=== PATIENT | male | born 1965 | race American Indian/Alaskan Native ===

== ENCOUNTER 2018-07-24 09:24 | Outpatient (CLI) | payer OTHER ==
[2018-07-24 10:24] LABS: Blood Urea Nitrogen 12 mg/dL (9-20)
--- NOTE | 2018-07-24 12:58 | Cat Scan Report ---
CT ABDOMEN PELVIS WITH CONTRAST: HISTORY: Colon cancer. COMPARISON: None at this facility. TECHNIQUE: Helical CT in 1.25mm intervals following IV contrast. Sagittal and coronal reconstructions. FINDINGS: Lung bases: Normal. Liver: Normal. Biliary system: The. Pancreas: Normal. Spleen: Normal. Kidneys/ureters/bladder: Within normal limits. 3.3 x 1.8 cm right renal cyst is noted. Adrenal glands: Normal. Aorta: Normal. Intestines: There is a focal area of asymmetric bowel wall thickening in the distal transverse colon with adjacent fat stranding or desmoplastic reaction in the mesentery. This area measures approximately 3.0 x 2.6 cm in axial plane. I believe I see a fistulous tract within the soft tissue density measuring 4-5 cm in length which connects two segments of the transverse colon. I am not entirely convinced this represents a colon mass. This may represent a colon to colon fistula as well. This is best demonstrated on images 91-101, series 2. This is also confirmed on the sagittal and coronal images. The remainder of the colon, small bowel loops and stomach are within normal limits. Appendix: Normal. Pelvic viscera: Normal. Ascites: None. Adenopathy: None. Musculoskeletal: Normal. IMPRESSION: There is a focal abnormality in the distal transverse colon as outlined above. Although this could represent a colon neoplasm, I would also consider a colon to colon fistula. Please see above. There is no evidence for metastatic disease.
== END 2018-07-24 09:25 | disposition home or self-care (01) ==
LOC: CT 09:24
PROVIDERS: ATTEND Internal Medicine Gastroenterology
DX: C18.4 Malignant neoplasm of transverse colon (principal)
CPT/HCPCS: 36415; 74177; 82565; 84520; Q9967

== ENCOUNTER 2018-08-15 06:06 | Inpatient (IN) | payer OTHER ==
[2018-08-11 11:52] LABS: Eosinophils % (Auto) 0.2 % (0.0-4.3); Hematocrit 40.9 % (35.5-45.6); Hemoglobin 13.8 gm/dl (11.8-15.2); Lymphocytes # (Auto) 1.8 K/mm3 (1.2-5.4); Lymphocytes % (Auto) 48.7 % (13.4-35.0); Mean Corpuscular HGB Conc 34 % (32-34); Mean Corpuscular Volume 87 fl (84-94); Monocytes # (Auto) 0.4 K/mm3 (0.0-0.8); Monocytes % (Auto) 12.2 % (0.0-7.3); Platelet Count 251 K/mm3 (140-440); Red Cell Distribution Width 13.2 % (13.2-15.2)
--- NOTE | 2018-08-11 11:55 | Anesthesia Consultation ---
Addendum entered and electronically signed by BOBO HEREDIA MD 08/15/18 08:29: Upon arrival to pre-op, patient reported that he did not complete the entire bowel prep and that most recent bowel movement at 0400 today still contained some stool. Case cancelled per surgeon. Original Note: Anesthesia Consult and Med Hx Date of service: 08/11/18 - Airway Anesthetic Teeth Evaluation: Good (some missing) ROM Head & Neck: Adequate Mental/Hyoid Distance: Adequate Mallampati Class: Class I Intubation Access Assessment: Good - Pulmonary Exam CTA: Yes - Cardiac Exam Cardiac Exam: RRR - Pre-Operative Health Status ASA Pre-Surgery Classification: ASA1 Proposed Anesthetic Plan: General Nerve Block: consider TAP - Pulmonary Hx Smoking: No - Cardiovascular System Hx Hypertension: No Hx Cardia Arrhythmia: No - Central Nervous System Hx Neuromuscular Disorder: No Hx Psychiatric Problems: No - Gastrointestinal Hx Gastroesophageal Reflux Disease: No - Endocrine Hx Renal Disease: No - Other Systems Hx Alcohol Use: No Hx Substance Use: No Hx Cancer: Yes Hx Obesity: No
[~2018-08-15 06:06] MED LIST: ANCEF/STERILE WATER 2 GM/20 ML 2 GM/20 ML SYRINGE IV NR; FLAGYL 500 MG/100 ML 500 MG/100 ML BAG IV NR; LACTATED RINGERS 1,000 ML IV SCH; NACL 0.9% 1000 ML 1,000 ML IV SCH; NEURONTIN PO SCH; ROBINUL IV NR; SUBLIMAZE IV PRN; VERSED IV NR
[2018-08-15] MEDS ORDERED: NACL BACTERIOSTATIC INFILTRATI ONE (06:48)
[2018-08-15] MEDS ORDERED: DECADRON ONE ×2 (07:01→07:14)
[2018-08-15] MEDS ORDERED: MARCAINE 0.25% INFILTRATI ONE (07:01)
[2018-08-15] MEDS ORDERED: XYLOCAINE MPF 2% ONE (07:13)
[2018-08-15] MEDS ORDERED: SUBLIMAZE ONE (07:13)
[2018-08-15] MEDS ORDERED: DIPRIVAN 10 MG/ML IV ONE (07:13)
[2018-08-15] MEDS ORDERED: ZEMURON IV ONE (07:14)
[2018-08-15] MEDS ORDERED: ZOFRAN ONE (07:14)
--- NOTE | 2018-08-15 07:49 | Event Note ---
Date: 08/15/18 Case had to be cancelled. Pt was not able to take the bowel prep as recommended. He was still having liquid stool this AM at 4am. We discussed the increased risk of infection with bowel surgery and an inadequate prep. Pt understood. No time tomorrow on the OR schedule. Will reschedule for another day. Spoke with son as well. He understood.
[2018-08-15 07:57] VITALS: BP 126/88
== END 2018-08-15 07:32 | disposition home or self-care (01) | DRG 376 ==
LOC: 3A 06:06
PROVIDERS: ADMIT Surgery; ATTEND Surgery
DX: C18.4 Malignant neoplasm of transverse colon (principal); Z53.8 Procedure and treatment not carried out for other reasons
CPT/HCPCS: 36415; 85025; G0378; J0690; J1100; J2250; J2405; J2704; J3010; J7030; J7120

== ENCOUNTER 2018-08-29 07:16 | Inpatient (IN) | payer OTHER ==
[~2018-08-29 07:16] MED LIST changes: -LACTATED RINGERS 1,000 ML IV SCH; -NACL 0.9% 1000 ML 1,000 ML IV SCH; -ROBINUL IV NR; -SUBLIMAZE IV PRN; -VERSED IV NR
[2018-08-29] MEDS ORDERED: XYLOCAINE MPF 2% ONE (08:36)
[2018-08-29] MEDS ORDERED: SUBLIMAZE ONE ×2 (08:36→09:22)
[2018-08-29] MEDS ORDERED: DIPRIVAN 10 MG/ML IV ONE (08:36)
[2018-08-29] MEDS ORDERED: NACL 0.9% 1000 ML 1,000 ML ONE (08:43)
[2018-08-29] MEDS ORDERED: LACTATED RINGERS 1,000 ML IV SCH (09:00)
[2018-08-29] MEDS ORDERED: TYLENOL PO NR (09:00)
[2018-08-29] MEDS ORDERED: NEURONTIN PO NR ×2 (09:00)
[2018-08-29] MEDS: NACL 0.9% 1000 ML 1,000 ML IV SCH ×2 (09:05→23:29)
[2018-08-29] MEDS ORDERED: VERSED ONE (09:21)
[2018-08-29] MEDS ORDERED: MARCAINE 0.25% INFILTRATI ONE (09:21)
[2018-08-29] MEDS ORDERED: XYLOCAINE 1% 20 mL ONE (09:21)
[2018-08-29] MEDS ORDERED: XYLOCAINE 1%/ EPI 1:100,000 INFILTRATI ONE (09:34)
[2018-08-29] MEDS ORDERED: MARCAINE 0.5% INFILTRATI ONE (09:34)
[2018-08-29] MEDS ORDERED: TYLENOL #3 PO STA (09:40)
[2018-08-29] MEDS ORDERED: TYLENOL ONE (10:07)
[2018-08-29] MEDS ORDERED: NEURONTIN ONE (10:07)
--- NOTE | 2018-08-29 13:24 | Post Operative Note ---
Date of procedure: 08/29/18 (dictation: [id number]) Pre-op diagnosis: colon cancer Post-op diagnosis: same Findings: large, firm mass in sigmoid colon. No other signs of cancer Procedure: Lap sigmoid colectomy with primary anastomosis IVF 1600cc UOP 250cc Anesthesia: TAMMY Surgeon: WILFRID THOMAS Financial Aid Manager: LIBORIO LOWERY Estimated blood loss: 50-100ml Pathology: list (sigmoid colon) Specimen disposition: to lab Condition: stable Disposition: PACU
--- NOTE | 2018-08-29 13:45 | XRay Report ---
ABDOMEN, 2 views: History: Instrument count. Recent surgical changes are noted. The bowel gas pattern is within normal limits. No radiopaque foreign body is identified in the abdomen or pelvis. IMPRESSION: No foreign body is identified.
--- NOTE | 2018-08-29 15:21 | Anesthesia Day of Surgery ---
Anesthesia Day of Surgery - Day of Surgery Patient Examined: Yes Patient H&P Reviewed: Yes Patient is NPO: Yes Philip's Test: N/A (All questions/concerns addressed.)
--- NOTE | 2018-08-29 15:27 | Anesthesia Consultation ---
Anesthesia Consult and Med Hx Date of service: 08/29/18 - Airway Anesthetic Teeth Evaluation: Good, Chipped ROM Head & Neck: Adequate Mental/Hyoid Distance: Adequate Mallampati Class: Class III Intubation Access Assessment: Probably Good - Pulmonary Exam CTA: Yes - Cardiac Exam Cardiac Exam: RRR - Pre-Operative Health Status ASA Pre-Surgery Classification: ASA3 Proposed Anesthetic Plan: General - Pulmonary Hx Smoking: No - Cardiovascular System Hx Hypertension: No Hx Cardia Arrhythmia: No - Central Nervous System Hx Neuromuscular Disorder: No Hx Psychiatric Problems: No - Gastrointestinal Hx Gastroesophageal Reflux Disease: No - Endocrine Hx Renal Disease: No - Other Systems Hx Alcohol Use: No Hx Substance Use: No Hx Cancer: Yes Hx Obesity: No - Additional Comments Anesthesia Medical History Comments: ASA III 53 y.o.m. with colon cancer and no major comorbidities scheduled for colectomy under [facility]
[2018-08-29] MEDS ORDERED: TYLENOL PO PRN (16:22)
[2018-08-29] MEDS ORDERED: DILAUDID IV PRN (16:22)
[2018-08-29] MEDS ORDERED: ZOFRAN IV PRN (16:22)
--- NOTE | 2018-08-29 16:59 | Event Note ---
Date: 08/29/18 Routine post-op check Pt resting comfortably in bed. No complaints. Had minimal pain. Easy breathing. Looks comfortable. Pt has no needs at this time. CPM.
--- NOTE | 2018-08-29 17:37 | Operative Report ---
PREOPERATIVE DIAGNOSIS: Sigmoid colon cancer. POSTOPERATIVE DIAGNOSIS: Sigmoid colon cancer. PROCEDURE: Laparoscopic sigmoid colectomy with primary anastomosis. ATTENDING PHYSICIAN: Cierra Holguin MD CHIEF METEOROLOGIST: Dr. Bernardo. ESTIMATED BLOOD LOSS: 50 mL. FLUIDS: 1600 mL. URINE OUTPUT: 250 mL. FINDINGS: Large firm mass with desmoplastic reaction in the surrounding tissue in the sigmoid colon. There was no other evidence of any neoplastic process in the abdomen. The rest of the organs appeared normal. SPECIMEN: Sigmoid colon. DRAINS: None. COMPLICATIONS: None. DISPOSITION: Stable, transport to Recovery Room. INDICATIONS: This is a 53-year-old male who originally presented to his primary care and subsequently to GI for colonoscopy. He was found to have a large mass and subsequently referred to General Surgery. Biopsies did come back positive for adenocarcinoma. The patient is assessed to be in need for partial colectomy. Procedure, risks, benefits were explained to the patient. Risks included but were not limited to infection, bleeding, pain, injury to surrounding structures, possible need for open surgery, possible need for colostomy, possible need for further procedures in the future. The patient understood and consented. OPERATIVE NOTE: The patient was brought to the operating room and placed on the table in supine position. After adequate general anesthesia was established, the patient was placed in lithotomy position. All pressure points were padded. The patient was secured. Sterile prep and drape was performed. Cleaning catheter was placed. SCDs were in place. Antibiotics had been administered prior to start of the case. Timeout was called. We marked the major anatomical landmarks on the abdominal wall. The patient had already received a TAP block prior to the start of the case. I began by placing a Veress needle in the left upper quadrant. I was able to insufflate in the first attempt. I then placed a 5 mm port in the left side of the abdomen. Using the Optiview technique, I entered the peritoneal cavity safely. We examined where the Veress needle had entered. We saw no evidence of any injury. Veress needle was removed. I subsequently placed a 12 mm port in the right lower quadrant and in the supraumbilical position. A 5 mm port was placed on the left side of the abdomen. We inspected the entire abdominal cavity and as mentioned, we did not find any other disease. The mesentery associated with the sigmoid colon in the area of the mass was scarred down. It was foreshortened. It appeared to have a desmoplastic reaction in that area. In the midportion of the sigmoid mesentery, I divided the overlying peritoneal layer, then identifying the natural plane of separation between the sigmoid mesentery and retroperitoneum; I began that dissection. As mentioned, there was scarring in the area near the tumor. Therefore, I dissected distal and proximal to this area and then we joined the two in the middle. We identified the ureter, the retroperitoneal space and lining was completely intact. Therefore, we felt very confident. The ureter and other retroperitoneal structures were not injured. We took this dissection all the way up to the splenic flexure. I then mobilized it on the lateral aspect. We had a fairly long redundant sigmoid colon; therefore simply mobilizing the left colon was sufficient for excision of the specimen as well as anastomosis. Once the colon was completely mobilized, we then made sure we had enough length distally and proximally to have a good oncologic resection. At this point, once we were satisfied with the dissection, we then extended the supraumbilical port incision around the umbilicus. The total length of the incision was about 6 cm. We entered the peritoneal cavity safely. Wound protector was placed and then we brought the specimen up through there. We had more than enough length to divide the bowel without any excess tension. We made sure we had at least 5 cm on the distal aspect and 10 cm in the proximal aspect. Using a GI stapler blue loads, we divided the specimen. Using the Harmonic scalpel, we divided the mesentery as low as safe and then passed the specimen off in sterile fashion, the mass was easily palpable. We lined up the two ends of the remaining bowel; 3-0 silk sutures were used to line up the bowel. We reinsufflated the abdomen to make sure there was no twist to either end and there was none. We then proceeded to excise off a corner on each of the staple lines. We had to hold off the area to minimize any spillage. The QUIANA stapler was passed into each limb and then the stapler was closed using a blue load. We made sure there was nothing caught between the two limbs of bowel and then we fired the stapler. We had good hemostasis. We closed the new enterotomy with a TA stapler. We reinforced that area with 3-0 simple sutures. We used the adjacent epiploic appendages to cover that area as well. Where the crotch was, we put 2 additional 3-0 silk sutures to reinforce that area. My feeling was that the mesenteric defect was going to be very wide because the two limbs were anastomosed side to side for functional end to end, which I figured would leave the mesentery in almost a triangular configuration. Trying to bring the two ends together, I felt it would put excess tension in that area and most likely leave a very small hole, which would be at high risk for bowel obstruction. Therefore, I did not close the mesentery. Dr. Bernardo and I did discuss this option. We then reinsufflated the abdomen, reinspected the abdomen, we had absolutely no active bleeding, we had very minimal fluid in the abdomen. Everything looked very good, we had no concerns at this point. We then desufflated the abdomen again, removed all the ports and wound protector. I closed the midline fascia with a looped #1 PDS suture. The midline wound was cleaned with irrigation. All skin sites were closed with aly. The patient tolerated procedure well. There were no complications. All counts were correct at the end of the case. JOB# [id number] BABITA/YAKOV
[2018-08-29] MEDS: TORADOL IV SCH ×2 (18:21→23:29)
[2018-08-29] MEDS ORDERED: LOVENOX SUB-Q ONE (22:00)
[2018-08-30] MEDS: TORADOL IV SCH ×4 (05:29→23:00)
[2018-08-30 07:05] LABS: Hematocrit 37.7 % (35.5-45.6); Hemoglobin 12.3 gm/dl (11.8-15.2); Mean Corpuscular HGB Conc 33 % (32-34); Mean Corpuscular Volume 87 fl (84-94); Platelet Count 269 K/mm3 (140-440); Red Blood Count 4.34 M/mm3 (3.65-5.03); Red Cell Distribution Width 13.4 % (13.2-15.2)
[2018-08-30 07:24] LABS: BUN/Creatinine Ratio 10; Blood Urea Nitrogen 9 mg/dL (9-20); Calcium 8.3 mg/dL (8.4-10.2); Hemolysis Index 4
[2018-08-30] MEDS: NACL 0.9% 1000 ML 1,000 ML IV SCH (10:47)
--- NOTE | 2018-08-30 11:06 | Progress Note ---
Assessment and Plan - Patient Problems (1) Malignant neoplasm of sigmoid colon Current Visit: Yes Status: Acute Plan to address problem: Pt stable. s/p lap sigmoid colectomy - 08/29/17 - POD#1. Pt looks great. No complaints other than sore throat. Has already been ambulating. Cleaning out in AM. - clears tonight - continuing ambulating. - d/c IVF tonight - cepacol for sore throat Subjective Date of service: 08/30/18 Patient Reports: Positive: no new complaints, no flatus, other (minimal pain. Sore throat persists. has been ambulating). Negative: nausea, vomiting Objective Vital Signs - 12hr 08/29/18 08/29/18 08/30/18 23:29 23:37 04:47 Temperature 98.7 F 98.5 F Pulse Rate 86 81 Respiratory 18 18 18 Rate Blood Pressure 117/67 116/69 Blood Pressure [Right] O2 Sat by Pulse 97 100 Oximetry 08/30/18 08/30/18 05:29 08:00 Temperature 97.8 F Pulse Rate 74 Respiratory 18 16 Rate Blood Pressure Blood Pressure 111/71 [Right] O2 Sat by Pulse 100 Oximetry - General physical appearance no distress, no pain, other (smiling. Looks good) - Eyes normal occular movement - Respiratory normal expansion, normal respiratory effort - Abdomen soft, tender (minimal), bowel sounds hypoactive, distended (minimal), not guarding, not rigid, surgical scars (minimal drainage on dressings) - Psychiatric oriented to time, oriented to person, oriented to place, speech is normal, memory intact - Labs 08/30/18 06:51 08/30/18 06:51 Diabetes panel 08/30/18 Range/Units 06:51 Sodium 142 (137-145) mmol/L Potassium 4.2 (3.6-5.0) mmol/L Chloride 106.7 (98-107) mmol/L Carbon Dioxide 25 (22-30) mmol/L BUN 9 (9-20) mg/dL Creatinine 0.9 (0.8-1.5) mg/dL Glucose 100 (75-100) mg/dL Calcium 8.3 L (8.4-10.2) mg/dL Calcium panel 08/30/18 Range/Units 06:51 Calcium 8.3 L (8.4-10.2) mg/dL Pituitary panel 08/30/18 Range/Units 06:51 Sodium 142 (137-145) mmol/L Potassium 4.2 (3.6-5.0) mmol/L Chloride 106.7 (98-107) mmol/L Carbon Dioxide 25 (22-30) mmol/L BUN 9 (9-20) mg/dL Creatinine 0.9 (0.8-1.5) mg/dL Glucose 100 (75-100) mg/dL Calcium 8.3 L (8.4-10.2) mg/dL Adrenal panel 08/30/18 Range/Units 06:51 Sodium 142 (137-145) mmol/L Potassium 4.2 (3.6-5.0) mmol/L Chloride 106.7 (98-107) mmol/L Carbon Dioxide 25 (22-30) mmol/L BUN 9 (9-20) mg/dL Creatinine 0.9 (0.8-1.5) mg/dL Glucose 100 (75-100) mg/dL Calcium 8.3 L (8.4-10.2) mg/dL
[2018-08-30] MEDS ORDERED: CEPACOL X STRENGTH MM PRN (12:15)
[2018-08-30] MEDS: LOVENOX SUB-Q SCH (21:12)
[2018-08-30] MEDS ORDERED: LOVENOX SUB-Q SCH ×2 (22:00)
[2018-08-31] MEDS: TORADOL IV SCH ×3 (06:11→17:45)
[2018-08-31] MEDS ORDERED: NORCO 5/325 PO PRN (11:28)
--- NOTE | 2018-08-31 11:38 | Progress Note ---
Assessment and Plan - Patient Problems (1) Malignant neoplasm of sigmoid colon Current Visit: Yes Status: Acute Plan to address problem: Pt stable. s/p lap sigmoid colectomy - 08/29/17 - POD#2. Pt looks great. Passed flatus yesterday. Tolerated clears. - advance to soft diet - continuing ambulating - possible d/c home tomorrow if diet tolerated. Subjective Date of service: 08/31/18 Patient Reports: Positive: no new complaints, feels better, pain is less, tolerating liquids well, flatus, bowel movement. Negative: nausea, vomiting Objective Vital Signs - 12hr 08/31/18 08/31/18 08/31/18 04:37 06:11 08:01 Temperature 98.5 F 98.1 F Pulse Rate 79 67 Respiratory 20 18 18 Rate Blood Pressure 120/79 127/75 O2 Sat by Pulse 93 95 Oximetry - General physical appearance no distress, no pain, other (looks good) - Respiratory normal expansion, normal respiratory effort - Abdomen soft, not tender, not guarding, not rigid, surgical scars (C/D/I), other (protuberant - patient says it is normal for him) - Integumentary no rash, no growths, no abnormal pigmentation - Psychiatric oriented to time, oriented to person, oriented to place, speech is normal, memory intact - Labs 08/30/18 06:51 08/30/18 06:51
[2018-08-31] MEDS: LOVENOX SUB-Q SCH (22:18)
[2018-09-01] MEDS: TORADOL IV SCH ×2 (01:47→06:32)
--- NOTE | 2018-09-01 07:57 | Discharge Summary ---
Providers - Providers Date of Admission: 08/29/18 08:23 Date of discharge: 09/01/18 Attending physician: WILFRID THOMAS MD Primary care physician: MONICO CRAWFORD Hospitalization Reason for admission: elective surgery for colon cancer Condition: Stable Procedures: Lap sigmoid colectomy with primary anastomosis Hospital course: uneventful Disposition: DC-01 TO HOME OR SELFCARE Time spent for discharge: 20min - Discharge Diagnoses (1) Malignant neoplasm of sigmoid colon Status: Acute Core Measure Documentation - Palliative Care Palliative Care/ Comfort Measures: Not Applicable - Core Measures Any of the following diagnoses?: none - VTE Discharge Requirements Deep Vein Thrombosis/Pulmonary Embolism Present on Admission: No Exam - Constitutional Vitals: Temp Pulse Resp BP Pulse Ox 97.1 F L 67 17 115/73 98 09/01/18 04:12 09/01/18 04:12 09/01/18 04:12 09/01/18 04:12 09/01/18 04:12 General appearance: Present: no acute distress, other (looks good) - EENT Eyes: Present: EOM intact - Respiratory Respiratory effort: normal - Abdominal General gastrointestinal: Present: soft, non-tender, non-distended, other (Incisions C/D/I). Absent: rigid - Integumentary Integumentary: Present: clear, warm, dry - Psychiatric Psychiatric: appropriate mood/affect, intact judgment & insight, cooperative - Neurologic Neurologic: moves all extremities Plan Activity: other (no driving until cleared by surgeon) Diet: regular Wound: open to air, keep clean and dry, other (May shower. Pat dry wounds. ) Special Instructions: no heavy lifting (or strenuous activity for 6 weeks) Additional Instructions: May use tylenol or ibuprofen for pain Follow up with: MONICO CRAWFORD MD [Primary Care Provider] - 7 Days WILFRID THOMAS MD [Staff Physician] - 7 Days Forms: Work/School Release Form
[2018-09-01 10:17] VITALS: BP 135/83
== END 2018-09-01 10:50 | disposition home or self-care (01) | DRG 331 ==
LOC: UNDOADMIN 07:16 → 3A 07:16 → 3B-SURG 16:21
PROVIDERS: ADMIT Surgery; ATTEND Surgery
PROC: 0DBN4ZZ Excision of Sigmoid Colon, Percutaneous Endoscopic Approach (ICD-10-PCS; principal; 2018-08-29)
DX: C18.7 Malignant neoplasm of sigmoid colon (principal); J02.9 Acute pharyngitis, unspecified
CPT/HCPCS: 36415; 64450; 74019; 80048; 85027; 86850; 86900; 86901; 88309; 88341; 88342; 94760; G0378; J1650; J1885; J2250; J2704; J3010; J7030

== ENCOUNTER 2018-10-30 11:03 | Day surgery (SDC) | payer OTHER ==
[~2018-10-30 11:03] MED LIST changes: -FLAGYL 500 MG/100 ML 500 MG/100 ML BAG IV NR; +LACTATED RINGERS 1,000 ML IV SCH; -NEURONTIN PO SCH
[2018-10-30] MEDS ORDERED: HEPARIN 10,000 UNITS/10 ML ONE (11:15)
[2018-10-30] MEDS ORDERED: NACL 0.9% 250ML 250 ML ONE (11:15)
[2018-10-30] MEDS ORDERED: GELFOAM TP ONE (11:15)
[2018-10-30] MEDS ORDERED: MARCAINE 0.5% INFILTRATI ONE ×3 (11:15→13:20)
[2018-10-30] MEDS ORDERED: XYLOCAINE 1%/ EPI 1:100,000 INFILTRATI ONE ×3 (11:15→13:20)
[2018-10-30] MEDS ORDERED: VERSED IV SCH (11:21)
--- NOTE | 2018-10-30 11:24 | Anesthesia Consultation ---
Anesthesia Consult and Med Hx - Airway Anesthetic Teeth Evaluation: Good ROM Head & Neck: Adequate Mental/Hyoid Distance: Adequate Mallampati Class: Class II Intubation Access Assessment: Probably Good - Pulmonary Exam CTA: Yes - Cardiac Exam Cardiac Exam: RRR - Pre-Operative Health Status ASA Pre-Surgery Classification: ASA2 Proposed Anesthetic Plan: General, MAC - Pulmonary Hx Smoking: No Hx Asthma: No COPD: No Hx Pneumonia: No - Cardiovascular System Hx Hypertension: No Hx Cardia Arrhythmia: No - Central Nervous System Hx Neuromuscular Disorder: No Hx Psychiatric Problems: No - Gastrointestinal Hx Gastroesophageal Reflux Disease: No - Endocrine Hx Renal Disease: No Hx End Stage Renal Disease: No - Other Systems Hx Alcohol Use: No Hx Substance Use: No Hx Cancer: Yes Hx Obesity: No - Additional Comments Anesthesia Medical History Comments: no prior surgeries, newly diagnosed colon CA - appropriately nervous
[2018-10-30] MEDS ORDERED: SUBLIMAZE IV PRN (11:25)
[2018-10-30] MEDS ORDERED: DILAUDID IV PRN (11:25)
[2018-10-30] MEDS ORDERED: TORADOL IV PRN (11:25)
--- NOTE | 2018-10-30 11:25 | Anesthesia Day of Surgery ---
Anesthesia Day of Surgery - Day of Surgery Patient Examined: Yes Patient H&P Reviewed: Yes Patient is NPO: Yes Beta Blockers: No Cardiac Clearance: No Pulmonary Clearance: No Philip's Test: N/A
[2018-10-30] MEDS ORDERED: DIPRIVAN 10 MG/ML IV ONE (12:41)
[2018-10-30] MEDS ORDERED: SUBLIMAZE ONE (12:42)
[2018-10-30] MEDS ORDERED: NACL P/F VIAL (10 ML) 10 ML ONE (13:12)
[2018-10-30] MEDS ORDERED: HEPARIN 10,000 UNITS/10 ML IV ONE ×2 (13:20→13:37)
[2018-10-30] MEDS ORDERED: NACL 0.9% 250ML IV ONE (13:20)
[2018-10-30] MEDS ORDERED: NACL 0.9% IR ONE (13:20)
[2018-10-30] MEDS ORDERED: ZOFRAN ONE (13:38)
[2018-10-30] MEDS ORDERED: ROBINUL ONE (13:39)
[2018-10-30] MEDS ORDERED: BREVIBLOC IV ONE (13:44)
--- NOTE | 2018-10-30 13:49 | Short Stay Summary ---
Short Stay Documentation Date of service: 10/30/18 - History H&P: obtained from office - Allergies and Medications Current Medications: Allergies No Known Allergies Allergy (Verified 10/26/18 12:52) Home Medications Medication Instructions Recorded Confirmed Last Taken Type No Known Home Medications [No 08/11/18 10/26/18 Unknown History Reported Home Medications] Active Medications Fentanyl (Sublimaze) 50 mcg IV Q5MIN PRN PRN Reason: Pain , Severe (7-10) Stop: 10/30/18 23:59 Hydromorphone HCl (Dilaudid) 0.25 mg IV Q10MIN PRN PRN Reason: Pain, Moderate (4-6) Stop: 10/30/18 23:59 Cefazolin Sodium (Ancef/Sterile Water 2 Gm/20 Ml) 2 gm in 20 mls @ 80 mls/hr IV PREOP NR; Protocol Stop: 10/30/18 23:59 Lactated Ringer's (Lactated Ringers) 1,000 mls @ 100 mls/hr IV DIRECT YESY Stop: 10/30/18 23:59 Last Admin: 10/30/18 11:35 Dose: 100 mls/hr Documented by: Ketorolac Tromethamine (Toradol) 30 mg IV ONCE PRN PRN Reason: Pain, Moderate (4-6) Midazolam HCl (Versed) 2 mg IV PREOP YESY Stop: 10/30/18 23:59 Last Admin: 10/30/18 12:06 Dose: 2 mg Documented by: - Physical exam General appearance: no acute distress, well-nourished Integumentary: no rash, no growths, no abnormal pigmentation Lungs: Normal air movement Neurological: Normal speech - Brief post op/procedure progress note Date of procedure: 10/30/18 (Dictation: [id number]) Pre-op diagnosis: colon cancer Post-op diagnosis: same Procedure: Left subclavian port placement with US guidance IVF - 1L Anesthesia: GETA Findings: normal anatomy Surgeon: WILFRID THOMAS Estimated blood loss: minimal Pathology: none Condition: stable - Hospital course Hospital course: uneventful - Disposition Condition at discharge: Stable Disposition: DC-01 TO HOME OR SELFCARE Short Stay Discharge Plan Diet: regular Wound: open to air, keep clean and dry, other (apply ice pack to left upper chest for 10-15min/4-5 times a day. May shower tomorrow. Pat dry wounds. ) Special Instructions: no heavy lifting (or strenuous activity for 1 week) Additional Instructions: FOLLOW UP WITH DR CRAWFORD IN 7 DAYS CALL FOR APPOINTMENT CALL DR THOMAS'S OFFICE FOR FOLLOW UP CARE AND FOR ANY QUESTIONS OR CONCERNS RELATED TO YOUR PROCEDURE. DIET - REGULAR WOUND - DO NOT APPLY BAND-AID OR GAUZE TO INCISION. - KEEP INCISION CLEAN AND DRY. - PLACE ICE PACK TO INCISION SITE 4-5 TIMES PER DAY FOR 10-15 MINUTES . - MAY SHOWER TOMORROW. PAT INCISION SITE DRY. ACTIVITY - NO HEAVY LIFTING OR STRENUOUS ACTIVITY FOR 1 WEEK.. PRESCRIPTION - GIVEN FOR PAIN (HYDROCODONE ) TAKE DIRECTED. FOR 1 WEEK SMART PORT BOOKLET AND ID BAND AND ID CARD GIVEN TO PT Follow up with: MONICO CRAWFORD MD [Primary Care Provider] - 7 Days Forms: Outpatient Surgery DC Inst. Prescriptions: HYDROcodone/APAP 5-325 [[place] 5/325] 1 each PO Q6HR PRN #10 tablet PRN Reason: Pain , Severe (7-10)
--- NOTE | 2018-10-30 14:35 | Fluoroscopy Report ---
FLUOROSCOPY CENTRAL VENOUS DEVICE PLACEMENT History: [id number] insertion, colon cancer. Findings: Single AP view of the chest is presented. A left subclavian Genppe-i-[id number] has been inserted which terminates in the right atrium. Heart and mediastinal structures are unremarkable. The lungs are clear. No evidence for pneumothorax.
[2018-10-30 15:48] VITALS: BP 128/81
--- NOTE | 2018-10-30 20:18 | Operative Report ---
PREOPERATIVE DIAGNOSIS: Colon cancer. POSTOPERATIVE DIAGNOSIS: Colon cancer. PROCEDURE: 1. Insertion of tunneled centrally, inserted central venous access device with subcutaneous port. 2. Ultrasound guidance for vascular access. ATTENDING PHYSICIAN: Cierra Holguin MD. ANESTHESIA: General. ESTIMATED BLOOD LOSS: Minimal. FLUIDS: 1 liter. FINDINGS: Normal vascular anatomy. IMPLANT: Smart port 8-Bulgarian catheter. COMPLICATIONS: None. DISPOSITION: Stable, transferred to Recovery Room. INDICATIONS: This is a 53-year-old male who is known to our service as we took care of his colon resection for colon cancer. The patient returns for port placement. Procedure, risks, benefits were explained to the patient. Risks included but were not limited to infection, bleeding, pain, injury to surrounding structures, possible need for further procedures in the future. The patient understood and consented. OPERATIVE NOTE: The patient was brought to the operating room and placed on the table in supine position. After adequate general anesthesia was established, the patient was prepped and draped in the usual sterile fashion. Antibiotics had been given prior to start of the case. SCDs were in place. Time-out was called. The patient was placed in Trendelenburg position. Vascular anatomy was assessed with the ultrasound. Both the left internal jugular and subclavian veins, both were found to be good targets. Plan was for insertion into the left subclavian vein. A towel roll was placed under the spine prior to the prep and drape. Local anesthetic was administered into the planned access point using an echogenic needle. We accessed the left subclavian vein under ultrasound guidance. We could see the needle tip in the vein itself. We had good aspiration of venous blood. Guidewire passed easily. Position was confirmed with ultrasound and then with fluoroscopy. Guidewire was secured to the drape. We then created the subcutaneous pocket after injecting local anesthetic. Incision was made along the skin lines. Pocket was created both with electrocautery and blunt dissection. We checked to make sure the port would fit easily, it did. We then passed the tunnel up to the access point and brought the catheter out. Dilator and sheath were passed over the wire. Wire was freely mobile during the entire time. Catheter was inserted. Position was adjusted under fluoroscopy and then the catheter was cut to the appropriate length. The port was attached. We had easy aspiration and flush with heparinized saline. We then put the catheter in its final position and removed the sheath completely. We placed a locking solution in the port. Final fluoroscopy image showed the path of the catheter to be without any acute angle twists and the tip was just beyond 2 vertebral bodies below the liliana. Chest x-ray done afterwards showed no evidence of any complications. Catheter was in appropriate position. Additional local was injected into the surrounding tissue. Deep layer at the port site was closed with interrupted 3-0 Vicryl sutures. Skin sites were closed with 4-0 Monocryl subcuticular stitch. The skin was cleaned and dried. Dermabond was placed. The patient tolerated procedure well. There were no complications. All counts were correct at the end of the case. I spoke with the son at the end of the case. JOB# [id number] BABITA/YAKOV
== END 2018-10-30 15:48 | disposition home or self-care (01) ==
LOC: OR 11:03
PROVIDERS: ATTEND Surgery
DX: C18.7 Malignant neoplasm of sigmoid colon (principal); Z79.899 Other long term (current) drug therapy; Z85.89 Personal history of malignant neoplasm of other organs and systems; Z98.890 Other specified postprocedural states
CPT/HCPCS: 36561; 77001; C1788; J0690; J1644; J2250; J2405; J2704; J3010; J7050; J7120; A4649

== ENCOUNTER 2018-11-14 09:31 | Outpatient (CLI) | payer OTHER ==
[2018-11-14 11:23] LABS: Blood Urea Nitrogen 18 mg/dL (9-20)
--- NOTE | 2018-11-14 13:15 | Cat Scan Report ---
CT scan of chest, abdomen and pelvis with IV contrast: History: Malignant neoplasm of colon. Findings: No is or axillary adenopathy. No pleural pericardial effusion. Normal lung parenchyma. No discrete nodularity or consolidation Normal liver spleen pancreas and gallbladder. Normal adrenals. Cyst in the right kidney measures 2.9 cm. Second cyst in the right kidney measures 8 mm. No hydronephrosis. Minimal and thickwalled urinary bladder may be related to an adequate distention. Prostate measures 3.5 x 3.7 cm. No free intraperitoneal fluid. No evidence of adenopathy. Moderate volume stool in colon. No bowel distention. No evidence of appendicitis or diverticulitis. Impression: No mass in the lung parenchyma. No adenopathy in the abdomen and in chest.
--- NOTE | 2018-11-14 13:52 | Nuclear Medicine Report ---
NUCLEAR MEDICINE WHOLE-BODY BONE SCAN: 11/14/18 CLINICAL: Colon cancer. COMPARISON: None. TECHNIQUE: 25 millicuries technetium 99m MDP was injected intravenously and whole body scans were obtained at 3 hours. FINDINGS: Normal distribution of radionuclide in the skeleton and soft tissues. Benign uptake in the right wrist and in the shoulders. No suspicious uptake. IMPRESSION: Negative study.
== END 2018-11-14 09:32 | disposition home or self-care (01) ==
LOC: NM 09:31
PROVIDERS: ATTEND Internal Medicine Hematology
DX: C77.2 Secondary and unspecified malignant neoplasm of intra-abdominal lymph nodes (principal); C18.9 Malignant neoplasm of colon, unspecified
CPT/HCPCS: 36415; 71260; 74177; 78306; 82565; 84520; A9503; Q9967

== ENCOUNTER 2019-10-24 07:59 | Outpatient (CLI) | payer OTHER ==
[2019-10-24 08:54] LABS: Blood Urea Nitrogen 13 mg/dL (9-20)
--- NOTE | 2019-10-24 09:57 | Cat Scan Report ---
CT CHEST WITH CONTRAST INDICATION / CLINICAL INFORMATION: MAIN: MALIGNANT NEOPLASM COLON,GASTROESOPHAGEAL REFLUX 100 ML OMNI 300. TECHNIQUE: Axial CT images were obtained through the chest after 100 ML Omnipaque 300 milligrams percent IV cont rast. All CT scans at this location are performed using CT dose reduction for ALARA by means of autom ated exposure control. COMPARISON: 11/14/2018 FINDINGS: HEART: No significant abnormality. THORACIC AORTA: No significant abnormality. MEDIASTINUM and VALERIY: No significant abnormality. LUNGS: In comparison with previous exam, several pulmonary nodules have developed largest left lower lobe superior segment measuring 1.14 cm best delineated image 29 series 6. Small 0.69 cm pulmonary no dule is noted right middle lobe best delineated image 29 series 6. A small 0.5 cm pulmonary nodules p resent right lower lobe best delineated image 28 series 6. PLEURA: No significant pleural effusion. No pneumothorax. ADDITIONAL FINDINGS: None. SKELETAL SYSTEM: No significant abnormality. IMPRESSION: 1. Interval development of multiple pulmonary nodules worrisome for metastatic disease Signer Name: Baldemar Velazquez MD Signed: 10/24/2019 9:53 AM Workstation Name: [id number]
--- NOTE | 2019-10-24 10:10 | Cat Scan Report ---
CT ABDOMEN AND PELVIS WITH CONTRAST INDICATION / CLINICAL INFORMATION: MALIGNANT NEOPLASM COLON,GASTROESOPHAGEAL REFLUX. TECHNIQUE: Axial CT images were obtained through the abdomen and pelvis after 100 cc Omnipaque 300 milligrams pe rcent IV contrast. All CT scans at this location are performed using CT dose reduction for ALARA by means of automated exposure control. COMPARISON: 11/14/2018 FINDINGS: LIVER: No significant abnormality. GALLBLADDER: No significant abnormality. BILE DUCTS: No significant abnormality. PANCREAS: No significant abnormality. SPLEEN: No significant abnormality. ADRENALS: No significant abnormality. RIGHT KIDNEY and URETER: Stable right renal cyst LEFT KIDNEY and URETER: No significant abnormality. STOMACH and SMALL BOWEL: No significant abnormality. COLON: Surgical changes are present descending colon \APPENDIX: No significant abnormality. PERITONEUM: No free fluid. No free air. No fluid collection. LYMPH NODES: No significant adenopathy. AORTA and ARTERIES: No significant abnormality. IVC and VEINS: No significant abnormality. URINARY BLADDER: No significant abnormality. REPRODUCTIVE ORGANS: No significant abnormality. ADDITIONAL FINDINGS: None. SKELETAL SYSTEM: No significant abnormality. IMPRESSION: 1. Evidence of previous colon surgery 2. No evidence of local or distant metastatic disease 3. Multiple right renal cyst Signer Name: Baldemar Velazquez MD Signed: 10/24/2019 10:05 AM Workstation Name: [id number]
== END 2019-10-24 08:00 | disposition home or self-care (01) ==
LOC: CT 07:59
PROVIDERS: ATTEND Internal Medicine Hematology & Oncology
DX: N28.1 Cyst of kidney, acquired (principal); R91.1 Solitary pulmonary nodule; C18.9 Malignant neoplasm of colon, unspecified; K21.9 Gastro-esophageal reflux disease without esophagitis; Z91.14 Patient's other noncompliance with medication regimen
CPT/HCPCS: 36415; 71260; 74177; 82565; 84520; Q9967

== ENCOUNTER 2020-10-01 12:37 | Emergency (ER) | payer OTHER ==
[2020-10-01 13:08] VITALS: BP 128/79
[2020-10-01] MEDS ORDERED: DOCUSATE SODIUM 100 MG/10 ML ORAL LIQD PO ONE (13:08)
--- NOTE | 2020-10-01 13:19 | Emergency Department Report ---
ED General Adult HPI - General Chief complaint: Earache Stated complaint: BILATERAL EAR PAIN/CLOGGED Time Seen by Provider: 10/01/20 13:07 Source: patient Mode of arrival: Ambulatory Limitations: No Limitations - History of Present Illness Initial comments: 55-year-old -[place] male patient presents with complaints of right ear pain x1 week with decreased left ear hearing. He states he feels like his ears are clogged. He has a history of prostate cancer and is currently on chemo. He states there is mild hearing loss and rates his pain as 8/10 in severity. He denies any fever/chills/sweats, throat pain, headache, or vision changes. - Related Data Previous Rx's Medication Instructions Recorded Last Taken Type Ofloxacin 0.3% [Floxin 0.3% Otic] 10 drop OT QDAY 7 Days #1 bottle 10/01/20 Unknown Rx Allergies Allergy/AdvReac Type Severity Reaction Status Date / Time No Known Allergies Allergy Verified 10/01/20 13:02 ED Review of Systems ROS: Stated complaint: BILATERAL EAR PAIN/CLOGGED Other details as noted in HPI Constitutional: denies: chills, diaphoresis, fever, malaise Eyes: denies: eye pain ENT: ear pain. denies: throat pain Cardiovascular: denies: chest pain Gastrointestinal: denies: nausea, vomiting Musculoskeletal: denies: back pain, joint swelling Skin: denies: rash, lesions Neurological: denies: headache, numbness, paresthesias ED Past Medical Hx - Past Medical History Hx Hypertension: No Hx Congestive Heart Failure: No Hx Diabetes: No Hx Renal Disease: No Hx of Cancer: Yes Hx Asthma: No Hx COPD: No Hx HIV: No - Social History Smoking Status: Never Smoker Substance Use Type: None - Medications Home Medications: Home Medications Medication Instructions Recorded Confirmed Last Taken Type Ofloxacin 0.3% [Floxin 0.3% Otic] 10 drop OT QDAY 7 Days #1 bottle 10/01/20 Unknown Rx ED Physical Exam - General Limitations: No Limitations General appearance: alert, in no apparent distress - Head Head exam: Present: atraumatic, normocephalic - Eye Eye exam: Present: normal appearance. Absent: scleral icterus - ENT ENT exam: Present: normal exam, normal orophraynx, other (Bilateral cerumen impaction noted on exam; no tragal tenderness or external ear canal tenderness noted) - Neck Neck exam: Present: normal inspection, full ROM. Absent: lymphadenopathy - Respiratory Respiratory exam: Present: normal lung sounds bilaterally. Absent: respiratory distress - Cardiovascular Cardiovascular Exam: Present: regular rate, normal rhythm - Neurological Exam Neurological exam: Present: alert, oriented X3, normal gait - Psychiatric Psychiatric exam: Present: normal affect, normal mood - Skin Skin exam: Present: warm, dry, intact, normal color. Absent: rash ED Course Vital Signs 10/01/20 13:05 Temperature 98.0 F Pulse Rate 83 Respiratory 15 Rate Blood Pressure 128/79 O2 Sat by Pulse 98 Oximetry ED Medical Decision Making - Medical Decision Making 55-year-old -[place] male patient presents with complaints of right ear pain x1 week with decreased left ear hearing. He states he feels like his ears are clogged. He has a history of prostate cancer and is currently on chemo. He states there is mild hearing loss and rates his pain as 8/10 in severity. He denies any fever/chills/sweats, throat pain, headache, or vision changes. Ear irrigation performed to right ear-no erythema or bulging or post tympanic membrane mass noted. There is some ear canal irritation likely from irrigation. Patient states right ear pain has resolved with irrigation and cerumen disimpaction. Recommend follow-up with primary care or ENT. OTC Debrox recommended for cerumen impaction to left ear. Discussed in great detail signs and symptoms that should prompt immediate return to the emergency department in detail with patient who verbalizes understanding. His vitals are normal, he is well-appearing, he is stable for discharge home. Critical care attestation.: If time is entered above; I have spent that time in minutes in the direct care of this critically ill patient, excluding procedure time. ED Disposition Clinical Impression: Bilateral impacted cerumen, Right ear pain Disposition: - TO HOME OR SELFCARE Is pt being admited?: No Condition: Stable Instructions: Earwax Buildup, Adult, Earache, Adult Additional Instructions: Please use [id number] Debrox to remove wax buildup from your left ear Prescriptions: Ofloxacin 0.3% [Floxin 0.3% Otic] 10 drop OT QDAY 7 Days #1 bottle Referrals: PRIMARY CAREMD [Primary Care Provider] - 3-5 Days LOULOU WEBSTER MD [Staff Physician] - 3-5 Days
== END 2020-10-01 16:14 | disposition home or self-care (01) ==
LOC: ED 12:37
DX: H61.23 Impacted cerumen, bilateral (principal); Z79.899 Other long term (current) drug therapy
CPT/HCPCS: 99282; 99283

== ENCOUNTER 2021-03-17 04:16 | Emergency (ER) | payer OTHER ==
[2021-03-17] MEDS ORDERED: ONDANSETRON 4 MG/2 ML INJ IV ONE (04:45)
[2021-03-17] MEDS ORDERED: MORPHINE 4 MG/1 ML INJ IV ONE (04:45)
--- NOTE | 2021-03-17 04:48 | Event Note ---
ED Screening Note Date of service: 03/17/21 Time: 04:46 ED Screening Note: Patient is a 55-year-old -[place]yp[place] male with a history of colon cancer in remission through chemotherapy presents to the ED with complaint of acute onset persistent severe left flank pain that radiates to the lower abdomen diffusely for the last 8 hours. Patient states that he has also been having diffuse abdominal pain which he thought could have been due to significant amount of gas for the last 3 days. Patient states that he has been having persistent diarrhea with painful rectum for the last 8 hours. Patient denies heavy lifting, fall, fever, chills, nausea, vomiting, dizziness, syncope, chest pain or shortness of breath, testicular pain, dysuria, hematuria, urinary frequency and urgency, cough or headache. This initial assessment/diagnostic orders/clinical plan/treatment(s) is/are subject to change based on patients health status, clinical progression and re- assessment by fellow clinical providers in the ED. Further treatment and workup at subsequent clinical providers discretion. Patient/guardian urged not to elope from the ED as their condition may be serious if not clinically assessed and managed. Initial orders include: CBC, CMP, lipase, UA, CT abdomen pelvis with contrast
[2021-03-17 05:17] LABS: Bilirubin,Urine NEG (Negative); Blood,Urine SM (Negative); Color,Urine Yellow (Yellow); Mucus,Urine FEW /HPF; Protein,Urine <15 mg/dL mg/dL (Negative); RBC,Urine < 1.0 /HPF (0.0-6.0); Urobilinogen,Urine < 2.0 mg/dL (<2.0)
[2021-03-17 05:54] LABS: Basophils % (Auto) 0.6 % (0.0-1.8); Hematocrit 36.1 % (35.5-45.6); Hemoglobin 12.4 gm/dl (11.8-15.2); Lymphocytes # (Auto) 1.3 K/mm3 (1.2-5.4); Lymphocytes % (Auto) 19.5 % (13.4-35.0); Mean Corpuscular HGB Conc 34 % (32-34); Mean Corpuscular Volume 88 fl (84-94); Monocytes # (Auto) 0.5 K/mm3 (0.0-0.8); Monocytes % (Auto) 7.7 % (0.0-7.3); Platelet Count 267 K/mm3 (140-440); Red Cell Distribution Width 13.6 % (13.2-15.2)
[2021-03-17 05:57] LABS: Alanine Aminotransferase 10 units/L (7-56); Albumin 3.7 g/dL (3.9-5); BUN/Creatinine Ratio 9; Blood Urea Nitrogen 10 mg/dL (9-20); Hemolysis Index 2
--- NOTE | 2021-03-17 06:55 | Cat Scan Report ---
CT ABDOMEN AND PELVIS WITH IV CONTRAST INDICATION: LEFT sided flank / abdominal pain x 8 hrs. Hx of colon cancer. COMPARISON: CT 10/24/2019 TECHNIQUE: All CT scans at this facility use dose modulation, automated exposure control, iterative reconstructi on or weight based dosing, when appropriate, to reduce radiation dose to as low as reasonably achieva ble. FINDINGS: Lung Bases: There is minimal left pleural fluid. Skeletal System: No acute abnormality. ABDOMEN: Liver: No significant abnormality. Gallbladder: No significant abnormality. Bile Ducts: No significant abnormality. Pancreas: No significant abnormality. Spleen: No significant abnormality. Adrenals: No significant abnormality. Right Kidney: Small cysts. No acute findings. Left Kidney: There is mild dilatation of the left renal collecting system and proximal two thirds of the left ureter. No urolithiasis. Upper GI tract: No significant abnormality. Lymph Nodes: No significant adenopathy. Aorta: No significant abnormality. Additional Findings: No significant abnormality. PELVIS: Colon: Chest proximal to the colonic anastomosis in the left lower quadrant there is circumferential colonic wall thickening with adjacent contiguous mesenteric mass that measures approximately 3.2 cm on axial image 101. There are also pathologically enlarged adjacent nodes in the pericolonic fat. Th ere is pericolonic stranding at the sigmoid and rectum. Urinary Bladder and Distal Ureters: No significant abnormality. Appendix: No significant abnormality. Lymph Nodes: Pericolonic nodes in the left lower quadrant. Additional Findings: None. IMPRESSION: 1. Circumferential colonic wall thickening in the left lower quadrant just proximal to the anastomos is with adjacent mesenteric mass that appears to be contiguous with the colonic wall thickening. Ther e is also local adenopathy. These findings are concerning for recurrence along the suture line with l ocal metastatic disease. Colonoscopy is recommended. 2. There is mild secondary left hydronephrosis. Signer Name: Jose Daniels MD Signed: 03/17/2021 6:51 AM Workstation Name: [id number]
--- NOTE | 2021-03-17 08:18 | Emergency Department Report ---
ED General Adult HPI - General Chief complaint: Abdominal Pain Stated complaint: RT SIDE PAIN PUI?: No Source: patient, RN notes reviewed, old records reviewed Mode of arrival: Ambulatory Limitations: No Limitations - History of Present Illness Initial comments: The patient was evaluated in the emergency department for symptoms described in the history of present illness. He/she was evaluated in the context of the global COVID-19 pandemic, which necessitated consideration that the patient might be at risk for infection with the virus that causes COVID-19. Institutional protocols and algorithms that pertain to the evaluation of patients at risk for COVID-19 are in a state of rapid change based on information released by regulatory bodies including the CDC and federal and state organizations. These policies and algorithms were followed during the patient's care in the emergency department. Please note that these policies, procedures and recommendations changed on a rapid basis. Hematology oncology: Dr. White The patient is a 55-year-old gentleman with a history of colon cancer. He had a laparoscopic partial sigmoidectomy with reanastomosis in 2019. He also reports he completed chemotherapy. He has had a recent screening CT scans which have been negative for metastatic and malignant recurrence. The patient presents to the ER today with complaint of left flank, left lower quadrant abdominal pain. There is no nausea or vomiting. There is diarrhea. It is not bloody. There is no headache or chest pain. The patient denies dysuria and testicular pain. He feels improved after morphine and Zofran. 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 He is not currently on chemotherapy. -: Gradual, hour(s) Location: abdomen Radiation: abdomen Severity scale (0 -10): 9 Quality: aching Consistency: now resolved Improves with: medication Worsens with: none - Related Data Previous Rx's Medication Instructions Recorded Last Taken Type Docusate Sodium [Colace] 100 mg PO BID PRN #30 capsule 03/17/21 Unknown Rx Ondansetron [Zofran Odt] 4 mg PO Q8HR PRN #20 tab.rapdis 03/17/21 Unknown Rx oxyCODONE /ACETAMINOPHEN [Percocet 1 tab PO Q4HR #15 tab 03/17/21 Unknown Rx 5/325] Allergies Allergy/AdvReac Type Severity Reaction Status Date / Time No Known Allergies Allergy Verified 10/01/20 13:02 ED Review of Systems ROS: Stated complaint: RT SIDE PAIN Other details as noted in HPI Constitutional: denies: fever Eyes: denies: eye discharge Respiratory: denies: cough Cardiovascular: denies: chest pain Gastrointestinal: abdominal pain, diarrhea. denies: nausea, vomiting, hematemesis, melena, hematochezia Genitourinary: denies: dysuria, testicular pain Musculoskeletal: denies: back pain Neurological: denies: weakness Hematological/Lymphatic: denies: easy bleeding ED Past Medical Hx - Past Medical History Hx Hypertension: No Hx Congestive Heart Failure: No Hx Diabetes: No Hx Renal Disease: No Hx Asthma: No Hx COPD: No Hx HIV: No - Social History Smoking Status: Never Smoker Substance Use Type: None - Medications Home Medications: Home Medications Medication Instructions Recorded Confirmed Last Taken Type Docusate Sodium [Colace] 100 mg PO BID PRN #30 capsule 03/17/21 Unknown Rx Ondansetron [Zofran Odt] 4 mg PO Q8HR PRN #20 tab.rapdis 03/17/21 Unknown Rx oxyCODONE /ACETAMINOPHEN [Percocet 1 tab PO Q4HR #15 tab 03/17/21 Unknown Rx 5/325] ED Physical Exam - General Limitations: No Limitations General appearance: alert, in no apparent distress - Head Head exam: Present: atraumatic, normocephalic - Eye Eye exam: Present: normal appearance, EOMI. Absent: nystagmus - ENT ENT exam: Present: normal exam, normal orophraynx, mucous membranes moist, normal external ear exam - Neck Neck exam: Present: normal inspection, full ROM. Absent: tenderness, meningismus - Respiratory Respiratory exam: Present: normal lung sounds bilaterally. Absent: respiratory distress, wheezes, rales, rhonchi, stridor, decreased breath sounds - Cardiovascular Cardiovascular Exam: Present: regular rate, normal rhythm, normal heart sounds. Absent: bradycardia, tachycardia, irregular rhythm, systolic murmur, diastolic murmur, rubs, gallop - GI/Abdominal GI/Abdominal exam: Present: soft, normal bowel sounds. Absent: distended, tenderness, guarding, rebound, rigid, pulsatile mass - Rectal Rectal exam: Present: deferred - Extremities Exam Extremities exam: Present: normal inspection, full ROM, other (2+ pulses noted in the bilateral upper and lower extremities. There is no palpable cord. negative Homans sign. Muscular compartments are soft. The pelvis is stable.). Absent: pedal edema, calf tenderness - Back Exam Back exam: Present: normal inspection, full ROM. Absent: tenderness, CVA tenderness (R), CVA tenderness (L), paraspinal tenderness, vertebral tenderness - Neurological Exam Neurological exam: Present: alert, oriented X3, normal gait, other (No facial droop. Tongue midline. Extraocular movements intact bilaterally. Facial sensation intact to light touch in V1, V2, V3 distribution bilaterally. 5 and a 5 strength in 4 extremities. Sensation intact to light touch in 4 extremities.). Absent: motor sensory deficit - Psychiatric Psychiatric exam: Present: normal affect, normal mood - Skin Skin exam: Present: warm, dry, intact, normal color. Absent: rash ED Course Vital Signs 03/17/21 03/17/21 04:38 08:55 Temperature 98.6 F Pulse Rate 82 72 Respiratory 18 Rate Blood Pressure 138/73 127/86 [Right] O2 Sat by Pulse 97 96 Oximetry - Reevaluation(s) Reevaluation #1: 03/17/21 08:20 Differential diagnosis, including not limited to: Colitis, diverticulitis, obstruction, recurrence of cancer Assessment and plan: 55-year-old gentleman, who was afebrile, with reassuring vital signs, with no active vomiting, with a soft benign abdominal examination, with a CT scan of the abdomen pelvis today which unfortunately suggests recurrence of his malignancy. He denies urinary symptoms, urinalysis not consistent with infectious pathology, there is no CVA tenderness, mild left- sided hydronephrosis is likely secondary to underlying malignancy. He is not emergently or acutely obstructed. I had extensive discussion with the patient regarding his findings. As a courtesy, I will reach out to his hematology rn oncology research, and hopefully coordinate close outpatient follow-up. He will need to closely follow-up with outpatient primary care, as well as heme-onc. We will also instruct him to follow-up with outpatient urology for left-sided hydronephrosis. The patient has no active vomiting, is tolerating liquid feeds, has a soft benign belly, and he is in no acute distress. He does not require medical admission emergently at this time. 03/17/21 08:35 I have discussed the case with Dr. White She is not familiar with this patient, and recommends that this patient may be a patient of her colleague, Dr. Howe. Nevertheless, she will check her office medical records, and make Dr. Howe aware if necessary. In any event, this patient will be given close outpatient follow-up. We will discharge this patient with pain medication, nausea medication, and stool softeners. The patient was able to explicitly articulate understanding in his own words that we are concerned that his malignancy/cancer has recurred, and he needs to very closely follow-up as soon as possible with his outpatient oncologist. 03/21/21 01:26 ED Medical Decision Making - Lab Data Result diagrams: 03/17/21 05:04 03/17/21 05:04 Vital Signs 03/17/21 04:38 Temperature 98.6 F Pulse Rate 82 Blood Pressure 138/73 [Right] O2 Sat by Pulse 97 Oximetry Lab Results 03/17/21 03/17/21 03/17/21 Range/Units 05:04 05:04 Unknown WBC 6.6 (4.5-11.0) K/mm3 RBC 4.10 (3.65-5.03) M/mm3 Hgb 12.4 (11.8-15.2) gm/dl Hct 36.1 (35.5-45.6) % MCV 88 (84-94) fl MCH 30 (28-32) pg MCHC 34 (32-34) % RDW 13.6 (13.2-15.2) % Plt Count 267 (140-440) K/mm3 Lymph % (Auto) 19.5 (13.4-35.0) % [place] % (Auto) 7.7 H (0.0-7.3) % Eos % (Auto) 0.0 (0.0-4.3) % Baso % (Auto) 0.6 (0.0-1.8) % Lymph # (Auto) 1.3 (1.2-5.4) K/mm3 [place] # (Auto) 0.5 (0.0-0.8) K/mm3 Eos # (Auto) 0.0 (0.0-0.4) K/mm3 Baso # (Auto) 0.0 (0.0-0.1) K/mm3 Seg Neutrophils % 72.2 H (40.0-70.0) % Seg Neutrophils # 4.8 (1.8-7.7) K/mm3 Sodium 142 (137-145) mmol/L Potassium 4.5 (3.6-5.0) mmol/L Chloride 104.4 (98-107) mmol/L Carbon Dioxide 28 (22-30) mmol/L Anion Gap 14 mmol/L BUN 10 (9-20) mg/dL Creatinine 1.1 (0.8-1.3) mg/dL Estimated GFR > 60 ml/min BUN/Creatinine Ratio 9 % Glucose 123 H (75-100) mg/dL Calcium 9.0 (8.4-10.2) mg/dL Total Bilirubin 0.20 (0.1-1.2) mg/dL AST 17 (5-40) units/L ALT 10 (7-56) units/L Alkaline Phosphatase 97 (35-129) units/L Total Protein 7.6 (6.3-8.2) g/dL Albumin 3.7 L (3.9-5) g/dL Albumin/Globulin Ratio 0.9 % Lipase 19 (13-60) units/L Urine Color Yellow (Yellow) Urine Turbidity Clear (Clear) Urine pH 6.0 (5.0-7.0) Ur Specific [place] 1.011 (1.003-1.030) Urine Protein <15 mg/dl (Negative) mg/dL Urine Glucose (UA) Neg (Negative) mg/dL Urine Ketones Neg (Negative) mg/dL Urine Blood Sm (Negative) Urine Nitrite Neg (Negative) Urine Bilirubin Neg (Negative) Urine Urobilinogen < 2.0 (<2.0) mg/dL Ur Leukocyte Esterase Neg (Negative) Urine WBC (Auto) 1.0 (0.0-6.0) /HPF Urine RBC (Auto) < 1.0 (0.0-6.0) /HPF Urine Mucus Few /HPF Respiratory rate on my exam 12 to 14 breaths/min. - Radiology Data Radiology results: report reviewed, image reviewed [facility] [address] [place] [address] Cat Scan Report Signed Patient: JARAD SHELL MR#: [id number] 5 : 1965 Acct:[id number] Age/Sex: 55 / M ADM Date: 03/17/21 Loc: ED Attending Dr: Ordering Physician: DEVON PANDA Date of Service: 03/17/21 Procedure(s): CT abdomen pelvis w con Accession Number(s): [id number] cc: DEVON PANDA CT ABDOMEN AND PELVIS WITH IV CONTRAST INDICATION: LEFT sided flank / abdominal pain x 8 hrs. Hx of colon cancer. COMPARISON: CT 10/24/2019 TECHNIQUE: All CT scans at this facility use dose modulation, automated exposure control, iterative reconstruction or weight based dosing, when appropriate, to reduce radiation dose to as low as reasonably achievable. FINDINGS: Lung Bases: There is minimal left pleural fluid. Skeletal System: No acute abnormality. ABDOMEN: Liver: No significant abnormality. Gallbladder: No significant abnormality. Bile Ducts: No significant abnormality. Pancreas: No significant abnormality. Spleen: No significant abnormality. Adrenals: No significant abnormality. Right Kidney: Small cysts. No acute findings. Left Kidney: There is mild dilatation of the left renal collecting system and proximal two thirds of the left ureter. No urol ithiasis. Upper GI tract: No significant abnormality. Lymph Nodes: No significant adenopathy. Aorta: No significant abnormality. Additional Findings: No significant abnormality. PELVIS: Colon: Chest proximal to the colonic anastomosis in the left lower quadrant there is circumferential colonic wall thickening with adjacent contiguous mesenteric mass that measures approximately 3.2 cm on axial image 101. There are also pathologically enlarged adjacent nodes in the pericolonic fat. There is pericolonic stranding at the sigmoid and rectum. Urinary Bladder and Distal Ureters: No significant abnormality. Appendix: No significant abnormality. Lymph Nodes: Pericolonic nodes in the left lower quadrant. Additional Findings: None. IMPRESSION: 1. Circumferential colonic wall thickening in the left lower quadrant just proximal to the anastomosis with adjacent mesenteric mass that appears to be contiguous with the colonic wall thickening. There is also local adenopathy. These findings are concerning for recurrence along the suture line with local metastatic disease. Colonoscopy is recommended. 2. There is mild secondary left hydronephrosis. Signer Name: Jose Daniels MD Signed: 03/17/2021 6:51 AM Workstation Name: [id number] Transcribed By: GREG Dictated By: Jose Daniels MD Electronically Authen ticated By: Jose Daniels MD Signed Date/Time: 03/17/21 0651 DD/ Critical care attestation.: If time is entered above; I have spent that time in minutes in the direct care of this critically ill patient, excluding procedure time. ED Disposition Clinical Impression: History of colon cancer, Left sided abdominal pain Disposition: 01 HOME / SELF CARE / HOMELESS Is pt being admited?: No Does the pt Need Aspirin: No Condition: Good Instructions: Colorectal Cancer Additional Instructions: Do not take metformin medication for the next 2 days, if patient takes this medication. Drink 4 to 6 cups of water per day indefinitely. CT scan of the abdomen pelvis has suggested a recurrence in patient's colon cancer. It is very important that patient follow-up as soon as possible with his outpatient hematology rn oncology research; Dr. Arvin Howe, Dr Patrick White Not following up as soon as possible as an outpatient may lead to worsening colon cancer, which can cause , disability, paralysis, loss of quality of life. In addition, CT scan of the abdomen pelvis suggested mild left-sided swelling to the collecting system in the left kidney. This is likely secondary to underlying colon cancer. This does not require emergent treatment, but the patient should follow-up with an outpatient primary care doctor or urologist for this, such as Dr. Serrato, within the next 2 to 3 weeks. Please have your primary care doctor or hematology rn oncology research contact the medical records department to obtain copies of laboratory studies and radiology studies. Please return to the emergency room right away with new pain, worsened pain, migration of pain, projectile vomiting, inability to defecate, vomiting blood, or defecation of blood. The patient may require outpatient follow-up with a penology professor for possible repeat colonoscopy, such as Dr. Goodwin Recommend that the patient consult with his hematology rn oncology research to determine need for outpatient gastroenterology follow-up for repeat colonoscopy. Prescriptions: Docusate Sodium [Colace] 100 mg PO BID PRN #30 capsule PRN Reason: Constipation oxyCODONE /ACETAMINOPHEN [Percocet 5/325] 1 tab PO Q4HR #15 tab Ondansetron [Zofran Odt] 4 mg PO Q8HR PRN #20 tab.rapdis PRN Reason: Nausea Referrals: NAGI WHITE MD [Staff Physician] - 3-5 Days TOMAS SERRATO MD [Staff Physician] - 3-5 Days GAIL GOODWIN MD [Staff Physician] - 3-5 Days
[2021-03-17 08:56] VITALS: BP 127/86
== END 2021-03-17 08:56 | disposition home or self-care (01) ==
LOC: ED 04:16
DX: R10.30 Lower abdominal pain, unspecified (principal); Z85.038 Personal history of other malignant neoplasm of large intestine
CPT/HCPCS: 36415; 74177; 80053; 81001; 83690; 85025; 96374; 96375; 99284; J2270; J2405; Q9967

== ENCOUNTER 2021-05-01 07:51 | Outpatient (CLI) | payer OTHER ==
[2021-05-01 08:56] LABS: Blood Urea Nitrogen < 1 mg/dL (9-20)
--- NOTE | 2021-05-01 10:24 | Cat Scan Report ---
CT CHEST WITH CONTRAST INDICATION / CLINICAL INFORMATION: MALIGNANT NEOPLASM OF COLON,UNSPECIFIED OMNI 300 100 ML. TECHNIQUE: Axial CT images were obtained through the chest after 100 cc IV contrast. All CT scans at this locati on are performed using CT dose reduction for ALARA by means of automated exposure control. COMPARISON: CT chest 10/24/2019 FINDINGS: HEART: No significant abnormality. THORACIC AORTA: No significant abnormality. MEDIASTINUM and VALERIY: 3.9 cm in left perihilar mass encasing the left pulmonary artery and upper lobe bronchus. 1.6 cm right hilar node has decreased in size, previously measuring 2 cm LUNGS: Several bilateral pulmonary nodules/masses have increased in size and number. The largest inde x pulmonary mass left upper lobe superior segment currently measures 3.4 cm image 49, previously ana maría uring 1.1 cm image 56. There is a new solid 1.2 cm left upper lobe pulmonary nodule, and 2 enlarging pulmonary nodules within the right upper and lower lobes. PLEURA: No significant pleural effusion. No pneumothorax. ADDITIONAL FINDINGS: None. UPPER ABDOMEN: 2 new liver metastases within the inferior portion posterior hepatic segment measuring 9 and 10 mm images 132 and 136. SKELETAL SYSTEM: No significant abnormality. IMPRESSION: 1. Worsening mediastinal adenopathy and bilateral pulmonary metastases. 2. New liver metastases. Signer Name: Rufus Elias MD Signed: 05/01/2021 10:19 AM Workstation Name: [id number]
== END 2021-05-01 07:52 | disposition home or self-care (01) ==
LOC: CT 07:51
PROVIDERS: ATTEND Internal Medicine Hematology
DX: C78.7 Secondary malignant neoplasm of liver and intrahepatic bile duct (principal); C18.9 Malignant neoplasm of colon, unspecified; K21.9 Gastro-esophageal reflux disease without esophagitis; Z91.14 Patient's other noncompliance with medication regimen; R91.1 Solitary pulmonary nodule
CPT/HCPCS: 36415; 71260; 82565; 84520; Q9967

== ENCOUNTER 2021-06-30 09:31 | Day surgery (SDC) | payer OTHER ==
[2021-06-30] MEDS ORDERED: LIDOCAINE (1%) 10 MG/1 ML VIAL 20 ML MDV ONE (10:48)
[2021-06-30] MEDS ORDERED: BUPIVACAINE/PF (0.5%) 5 MG/1 ML 30 ML VIAL INFILTRATI ONE (10:48)
[2021-06-30] MEDS ORDERED: LIDOCAINE (1%) 10 MG/1 ML VIAL 20 ML MDV INFILTRATI ONE (11:17)
--- NOTE | 2021-06-30 11:40 | Procedure Note ---
Date of procedure: 06/30/21 Pre-op diagnosis: colon cancer Post-op diagnosis: same Procedure: Removal of left-sided [id number] Findings: Patient identified in preoperative area. He was taken back to the procedure room and placed on the stretcher in supine position. The left upper chest was prepped in the usual sterile fashion and a time out performed. Local anesthetic was infiltrated in the skin at the intended incision site. An incision was made at the old scar using a 15 blade. Dissection was carried down through the subcutaneous tissue using the 15 blade. The port was identified. The port was bluntly dissected from the surrounding tissue until the catheter was identified. The catheter was grasped between 2 hemostats and cut. The patient was then slight Trendelenburg position. The catheter portion was removed completely and passed off the table as a specimen for identification only. Pressure was held at the site for greater than 5 minutes and hemostasis ensured. The subcutaneous portion of the port was then dissected from the capsule using a hemostat. This was removed from the wound and passed off the table as a specimen for identification only. The subcutaneous tissue was irrigated and hemostasis very carefully ensured. The incision was then closed in layered fashion. The deep dermal layer was closed using 3-0 vicryl interrupted stitches. The skin was approximated using 4-0 monocryl subcuticular running stitch and skin glue. The patient tolerated the procedure well. All sharp, instrument, sponge counts were correct x2. Anesthesia: local Surgeon: LIBORIO LOWERY Estimated blood loss: minimal Pathology: list (port and catheter for ID only) Specimen disposition: to lab Condition: stable Disposition: other (home)
[2021-06-30 13:15] VITALS: BP 116/67
== END 2021-06-30 09:32 | disposition home or self-care (01) ==
LOC: OR 09:31
PROVIDERS: ATTEND Surgery
DX: Z45.2 Encounter for adjustment and management of vascular access device (principal); Z85.038 Personal history of other malignant neoplasm of large intestine; Z79.899 Other long term (current) drug therapy; Z90.49 Acquired absence of other specified parts of digestive tract
CPT/HCPCS: 36590; 88300; J3490

== ENCOUNTER 2021-11-25 11:11 | Outpatient (CLI) | payer OTHER | END 2021-11-25 11:12 | disposition home or self-care (01) | LOC: LABHHL 11:11 | PROVIDERS: ATTEND Internal Medicine Hematology | DX: C79.9 Secondary malignant neoplasm of unspecified site (principal) | CPT/HCPCS: 36415 ==

== ENCOUNTER 2022-03-01 14:59 | Outpatient (CLI) | payer OTHER ==
--- NOTE | 2022-03-02 07:48 | Cat Scan Report ---
CT NECK WITH CONTRAST HISTORY: ; Anemia, diarrhea, nausea, reflux 100ml of [id number] COMPARISON: CT chest same date. TECHNIQUE: Routine CT of the neck is performed following administration of 100 cc Omnipaque 350 intra venous contrast. In addition axial source images, coronal and sagittal MPR series are provided. All C T scans at this location are performed using CT dose reduction for ALARA by means of automated exposu re control. FINDINGS: Intracranial findings: The visualized intracranial structures demonstrate no significant abnormality. Intraorbital findings: The visualized orbital contents demonstrate no significant abnormality. Paranasal sinuses and mastoid air cells: Paranasal sinuses and mastoid air cells demonstrate no signi ficant opacification. Nasopharynx: The nasopharynx demonstrate no significant abnormality. Oropharynx: The oropharynx demonstrates symmetric appearance of the tonsils. No significant abnormali ty. Tongue base and hypopharynx: No asymmetry of the tongue base unusual enhancement is demonstrated. Epi glottis and aryepiglottic folds demonstrate no significant abnormalities. Salivary glands: Salivary glands are unremarkable. Larynx: Vocal cords, arytenoid cartilage, and larynx demonstrate no significant abnormality. Airway: Airway appears patent. Thyroid: Thyroid demonstrates no significant abnormality. Musculature of the neck: No significant abnormality. Vasculature of the neck: The included arterial and venous structures demonstrate no significant abnor mality. Lymph nodes: No adenopathy. Upper chest: Findings within the chest will be reported separately on dedicated CT of the chest perfo rmed same date. Bones: Osseous structures demonstrate no acute findings. Additional findings: None. IMPRESSION: 1. No acute findings. No metastatic disease within the neck or visualized intracranial structures. Signer Name: Yoel Bob II, MD Signed: 03/02/2022 7:44 AM Workstation Name: [id number]
--- NOTE | 2022-03-02 07:54 | Cat Scan Report ---
CT ABDOMEN AND PELVIS WITH CONTRAST INDICATION / CLINICAL INFORMATION: COLON CANCER C18.9 Anemia, diarrhea, nausea, reflux 100ml of omni3 50. TECHNIQUE: Axial CT images were obtained through the abdomen and pelvis after 100 cc Omnipaque [address] scans at this location are performed using CT dose reduction for ALARA by means of automated exposure control. COMPARISON: CT of the abdomen and pelvis 03/17/2021 FINDINGS: LOWER CHEST: Findings within the chest will be reported separately on dedicated CT of the chest perfo ed same date. LIVER: 1 cm hypoattenuating lesion inferior right hepatic lobe image #72. GALLBLADDER / BILE DUCTS: No significant abnormality. Biliary ducts grossly unremarkable. SPLEEN: No significant abnormality. PANCREAS: No significant abnormality. ADRENALS: No significant abnormality. KIDNEYS/URETERS: Percutaneous nephrostomy left kidney. The left kidney demonstrates slightly decrease d enhancement compared to right which may reflect diminished function. Additionally, left ureteral st ent is present in satisfactory position. The right kidney demonstrates stable cysts. STOMACH / DUODENUM / SMALL BOWEL: The stomach, duodenum, and small bowel demonstrate no significant a bnormality. No specific abnormality of the mesentery demonstrated. COLON: Double barrel colostomy right upper quadrant. Suture line within the left lower abdomen proxim al to mid sigmoid colon with surrounding soft tissue mass that may reflect patient's known neoplasm. Interval increase in size of mass along the anterior margin of the left psoas and iliac artery. This measures 4.1 x 2.1 cm. APPENDIX: No significant abnormality. PERITONEUM: No free air or free fluid are present within the abdomen or pelvis. LYMPH NODES: Lower para-aortic lymph nodes have increased in size since comparison study now measurin g up to 9 mm short axis. AORTA / ARTERIES: No significant abnormality. IVC / VEINS: No significant abnormality. URINARY BLADDER: Bladder decompressed. REPRODUCTIVE ORGANS: No significant abnormality. SKELETAL SYSTEM: Bilateral pars defect L5-S1. No suspicious osseous lesions. ADDITIONAL ABDOMINAL/PELVIC FINDINGS: None. IMPRESSION: 1. Soft tissue mass at the level of the sigmoid suture line is increased in amount since comparison s tudy compatible with disease recurrence or progression of patient's known colon cancer. 2. Lower para-aortic lymph nodes have increased in size since comparison study. 3. Small 1 cm lesion posterior/inferior right hepatic lobe worrisome for metastatic disease. Signer Name: Yoel Bob II, MD Signed: 03/02/2022 7:50 AM Workstation Name: [id number]
--- NOTE | 2022-03-02 08:00 | Cat Scan Report ---
CT CHEST WITH CONTRAST INDICATION / CLINICAL INFORMATION: COLON CANCER C18.9 Anemia, diarrhea, nausea, reflux 100ml of omni3 50. TECHNIQUE: Axial CT images were obtained through the chest after 100 cc Omnipaque [address] Al l CT scans at this location are performed using CT dose reduction for ALARA by means of automated exp osure control. COMPARISON: CT chest 05/01/2021. FINDINGS: CHEST: LOWER NECK: Soft tissues and musculature of the lower neck demonstrate no significant abnormality. Th e thyroid demonstrates no significant abnormality. THORACIC AORTA: No significant abnormality. PULMONARY ARTERY:No significant abnormality. HEART: No significant abnormality. CORONARY ARTERY CALCIFICATION: Present -- Mild. MEDIASTINUM / VALERIY: No significant abnormality. ESOPHAGUS: No significant abnormality. LYMPH NODES: Left hilar adenopathy has slightly decreased in size since comparison imaging. Right inf rahilar lymph nodes are stable or slightly decreased in size. LUNGS: Mass present within the superior segment left lower lobe is increased in size now measuring 4 cm greatest AP dimension, previously 3.5 cm. Nodule present within the superior segment right lower l obe now measures 2 cm, stable. Nodule within the right upper lobe grossly stable in size. Small nodul e within the anterior left upper lobe is increased in size now measuring 6 mm. PLEURA: No pleural effusion. No pneumothorax. THORACIC SOFT TISSUES: The venous access device right chest wall currently superior vena cava. No sig nificant abnormality of chest wall demonstrated. OSSEOUS STRUCTURES: No suspicious osseous lesions. UPPER ABDOMEN: Findings within the abdomen are reported on separate CT of abdomen performed same date . ADDITIONAL CHEST FINDINGS: None. IMPRESSION: 1. Pulmonary nodules are generally stable with the largest nodule located within the superior segment left lower lobe has increased in size since comparison. See details above. 2. Left hilar adenopathy/mass has slightly decreased in size. Signer Name: Yoel Bob II, MD Signed: 03/02/2022 7:56 AM Workstation Name: [id number]
== END 2022-03-01 15:00 | disposition home or self-care (01) ==
LOC: CT 14:59
PROVIDERS: ATTEND Internal Medicine Hematology
DX: Z51.11 Encounter for antineoplastic chemotherapy (principal); Z01.89 Encounter for other specified special examinations; C18.9 Malignant neoplasm of colon, unspecified; R91.1 Solitary pulmonary nodule; N28.1 Cyst of kidney, acquired; K21.9 Gastro-esophageal reflux disease without esophagitis; D70.9 Neutropenia, unspecified; R91.8 Other nonspecific abnormal finding of lung field; D64.9 Anemia, unspecified; R11.0 Nausea; R10.9 Unspecified abdominal pain; R19.7 Diarrhea, unspecified; I25.10 Atherosclerotic heart disease of native coronary artery without angina pectoris; Z91.14 Patient's other noncompliance with medication regimen
CPT/HCPCS: 36415; 70491; 71260; 74177; 82565; 84520; Q9967